=== PATIENT | male | born 1995 | race Two or more races ===

== ENCOUNTER 2023-11-19 18:45 | Emergency (ER) | payer OTHER ==
[~2023-11-19] VITALS: Ht 170.2 cm; Wt 77.3 kg
[2023-11-19 18:48] VITALS: BP 122/76; PULSE 78; RESP 18; TEMP 98.4
[2023-11-19] MEDS: IBUPROFEN 600 MG TABLET PO ONE (19:23)
[2023-11-19] MEDS ORDERED: IBUP-1554 PO (21:31)
[2023-11-19] MEDS ORDERED: ACET-66 PO (21:31)
== END 2023-11-19 21:36 | disposition home or self-care (01) ==
LOC: EMS 18:45
DX: S00.11XA Contusion of right eyelid and periocular area, initial encounter (principal); H11.31 Conjunctival hemorrhage, right eye; W22.8XXA Striking against or struck by other objects, initial encounter; Y93.64 Activity, baseball; Y92.89 Other specified places as the place of occurrence of the external cause; Y99.8 Other external cause status
CPT/HCPCS: 70140; 99283